=== PATIENT | male | born 1930 | race Caucasian/White ===

== ENCOUNTER 2019-01-05 11:00 | Outpatient (CLI) | payer MEDICARE ==
--- NOTE | 2019-01-05 13:41 | PET ---
Nuclear medicine FDG PET/CT: (Positron emission tomography and computed tomography) DATE: 01/05/2019 HISTORY: 88-year-old male with prostate cancer with recurrence at bladder wall. COMPARISON: 10/20/2018 TECHNIQUE: IV injection of F-18 fluorodeoxyglucose (FDG) dose: 11.8 mCi. PET scan and attenuation correction CT performed from skull base to proximal thighs. FINDINGS: SUV (standard uptake values) numbers given are maximum SUVs. QCLR used. There is a new finding of diffusely increased osseous uptake throughout the skeleton. No definite sclerotic osteoblastic lesions are visualized on the attenuation correction CT images. There is diffuse, moderate to severe mural thickening of the urinary bladder. FDG uptake in the bladd er wall cannot the evaluated because of the intense FDG activity within the bladder lumen. There are no FDG avid iliac chain lymph nodes, retroperitoneal lymph nodes, or any intra-abdominal or intrathoracic lymph nodes. No abnormal FDG uptake in the soft tissues of the neck, chest, or abdomen. Previously described findings on the attenuation correction CT are all again demonstrated and unchang ed. Please see that separate report. IMPRESSION: 1) new finding of diffusely increased FDG uptake throughout the skeleton. However, no definite osteob lastic lesions are visible on the attenuation correction CT. Has the patient received G-CSF? 2) diffuse mural thickening of the urinary bladder. This could represent neoplasm, radiation cystitis , or infectious cystitis. In general, we cannot evaluate degree of FDG uptake in the wall of the urinary bladder because of adjacent intense FDG activity in the lumen of the bladder. 3) no other areas of increased FDG uptake.
== END 2019-01-05 11:01 | disposition home or self-care (01) ==
LOC: PET 11:00
PROVIDERS: ATTEND Internal Medicine Hematology & Oncology
DX: C67.9 Malignant neoplasm of bladder, unspecified (principal); N32.89 Other specified disorders of bladder; R93.7 Abnormal findings on diagnostic imaging of other parts of musculoskeletal system
CPT/HCPCS: 78815; A9552

== ENCOUNTER 2020-01-20 13:08 | Outpatient (CLI) | payer MEDICARE ==
--- NOTE | 2020-01-20 14:12 | ULT ---
BILATERAL CAROTID DUPLEX ULTRASOUND: HISTORY: Atherosclerotic vascular disease TECHNIQUE: Grayscale, color-flow and spectral Doppler ultrasound imaging of the extracranial carotid artery syst ems was performed bilaterally. FINDINGS: There is plaque formation bilaterally. The peak systolic velocity in the right ICA measures 65 cm/s with an end-diastolic velocity of 14 cm/ s and a systolic ratio of 0.73. The peak systolic velocity in the left ICA measures 103 cm/s with an end-diastolic velocity of 23 cm/s and a systolic ratio of 1.12. Flow in both vertebral arteries remains antegrade. IMPRESSION: No evidence of hemodynamically significant stenosis
== END 2020-01-20 13:09 | disposition home or self-care (01) ==
LOC: SCSULT 13:08
PROVIDERS: ATTEND Internal Medicine
DX: I65.21 Occlusion and stenosis of right carotid artery (principal); I25.10 Atherosclerotic heart disease of native coronary artery without angina pectoris
CPT/HCPCS: 93880

== ENCOUNTER 2020-03-08 00:56 | Emergency (ER) | payer MEDICARE ==
[2020-03-08] MEDS ORDERED: Ketorolac Tromethamine 30 MG/ML VIAL ONE (02:16)
[2020-03-08] MEDS ORDERED: Ondansetron PF 4 MG/2 ML Vial ONE (02:16)
[2020-03-08] MEDS ORDERED: HYDROcodone/Acetaminophen 10/325 mg Tablet ONE (02:16)
== END 2020-03-08 03:18 | disposition home or self-care (01) ==
LOC: ERS 00:56
DX: C78.5 Secondary malignant neoplasm of large intestine and rectum (principal); C67.9 Malignant neoplasm of bladder, unspecified; E11.9 Type 2 diabetes mellitus without complications; I10 Essential (primary) hypertension; Z95.1 Presence of aortocoronary bypass graft; I25.10 Atherosclerotic heart disease of native coronary artery without angina pectoris; Z79.82 Long term (current) use of aspirin; Z79.899 Other long term (current) drug therapy
CPT/HCPCS: 96372; 99283; J1885; J2405

== ENCOUNTER 2020-03-10 09:27 | Inpatient (IN) | payer MEDICARE, OTHER ==
[2020-03-10 10:28] VITALS: BMI 24.0
[2020-03-10] MEDS ORDERED: Acetaminophen 325 MG TAB PO PRN (11:32)
[2020-03-10] MEDS ORDERED: Ondansetron PF 4 MG/2 ML Vial IVP PRN (11:32)
[2020-03-10] MEDS ORDERED: Acetaminophen 650 MG Suppository PR PRN (11:32)
[2020-03-10] MEDS ORDERED: Bisacodyl 10 MG SUPP PR PRN (11:32)
[2020-03-10] MEDS ORDERED: HumaLOG 300 UNITS/3 ML VIAL SC PRN (11:32)
[2020-03-10] MEDS ORDERED: Dextrose 5% in Water 1,000 ML IV PRN (11:32)
[2020-03-10] MEDS ORDERED: Dextrose 50% Abboject 50 ML SYRINGE SLOW IVP PRN (11:32)
[2020-03-10] MEDS ORDERED: Rocuronium Bromide 10 MG/ML (10ML VIAL) ONE (11:46)
[2020-03-10] MEDS ORDERED: Dexamethasone 20 MG/5 ML VIAL ONE (11:46)
[2020-03-10] MEDS ORDERED: EPHEDRINE 25 MG/5 ML SYRINGE ONE (11:46)
[2020-03-10] MEDS ORDERED: PHENYLEPHRINE-NS 100 MCG/ML 10 ML SYRINGE ONE (11:46)
[2020-03-10] MEDS ORDERED: Succinylcholine Chloride 20 MG/ML 10 ml SYRINGE FS ONE (11:46)
[2020-03-10] MEDS ORDERED: Lidocaine 1% PF 5 ML VIAL ONE (11:46)
[2020-03-10] MEDS ORDERED: PROPOFOL 200 MG/20 ML VIAL ONE (11:46)
[2020-03-10] MEDS ORDERED: Ondansetron PF 4 MG/2 ML Vial ONE (11:46)
[2020-03-10] MEDS: Morphine 4 MG/ML VIAL SLOW IVP PRN ×3 (12:17→23:24)
[2020-03-10] MEDS: Lactated Ringer's 1,000 ML IV SCH ×2 (12:22→20:11)
[2020-03-10 12:31] LABS: #Basophils 0.1 thou/uL (0.0-0.2); #Lymphocytes 1.2 thou/uL (1.20-3.40); #Monocytes 1.2 thou/uL (0.11-0.59); #Neutrophils 11.9 thou/uL (1.40-6.50); %Basophils 0.4 % (0.0-1.0); %Eosinophils 0.2 % (0.0-10.0); %Lymphocytes 8.3 % (21.0-51.0); %Neutrophils 83.1 % (42.0-75.0); Hemoglobin 13.2 g/dL (14.0-18.0); Mean Corpuscular HGB CONC 32.5 g/dL (32.0-36.0); Mean Corpuscular Hemoglobin 28.4 pg (27.0-31.0); Mean Corpuscular Volume 87.3 fL (78.0-98.0); Mean Platelet Volume 6.9 fL (7.4-10.4); Platelet Count 328 thou/uL (130-400); RBC Distribution Width 12.6 % (11.5-14.5); Red Blood Cell (RBC) Count 4.66 mill/uL (4.70-6.10); White Blood Cell (WBC) Count 14.3 thou/uL (4.8-10.8)
[2020-03-10] MEDS: fentaNYL 50 mcg/hour Patch TD SCH (12:33)
[2020-03-10 12:34] LABS: INR-International Normal Ratio 1.1; PTT 29.4 sec (22.9-36.1); Prothrombin Time 14.1 sec (12.0-14.7)
[2020-03-10 12:52] LABS: ALT (SGPT) 13 U/L (8-55); AST (SGOT) 27 U/L (5-34); Albumin 3.3 g/dL (3.4-4.8); Alkaline Phosphatase 80 U/L (40-110); Anion Gap 14 mmol/L (10-20); BUN (Urea Nitrogen) 17 mg/dL (8.4-25.7); Bilirubin, Total 0.4 mg/dL (0.2-1.2); Calc. Creatinine Clearance 65 mL/min (70-130); Calcium 8.8 mg/dL (7.8-10.44); Carbon Dioxide 22 mmol/L (23-31); Chloride 101 mmol/L (98-107); Estimated GFR-MDRD Greater than 90; Globulin 2.8 g/dL (2.4-3.5); Glucose 103 mg/dL (83-110); Potassium 4.1 mmol/L (3.5-5.1); Protein, Total 6.1 g/dL (5.8-8.1); Sodium 133 mmol/L (136-145)
--- NOTE | 2020-03-10 13:44 | RAD ---
PORTABLE SUPINE ABDOMEN: HISTORY: Question small bowel obstruction. FINDINGS: Evaluation of the bowel is limited on this single supine projection. Bowel survey with upright chest and 2-view abdomen including upright views are recommended if possible. There is stool seen in the left colon. There are gas-filled dilated loops of bowel in the mid and ri ght abdomen. This appears to represent transverse and right colon. I do not confirm small bowel dil atation or obstruction, although there is evidence of increased small bowel gas. IMPRESSION: 1. Evidence of colonic distention and stool in the left colon. Small bowel gas pattern appears nons pecific on this single supine projection. 2. There is amorphous calcification overlying the left mid abdomen which is seen within the mesenter y on recent CT is a benign dystrophic calcification. POS: AH
[2020-03-10] MEDS ORDERED: Fleet Enema 133 ML BOT PR SCH (14:45)
--- NOTE | 2020-03-10 14:45 | HP ---
REASON FOR ADMISSION: Possible bowel obstruction, severe dehydration. HISTORY OF PRESENTING ILLNESS: The patient gives history of having abdominal pain from last 3 weeks. This has been off and on. From last 5 days, he has had worsening of the same symptoms. The pain is more colicky in nature. He is constipated from last 5 days. He tried taking 30 mL of milk of magnesia x2 along with fleets enema four days back which did not really help. He had come to ER on the and has had a CT scan done which shows signs of possible small bowel obstruction. He has not had any relief with any of this. Finally, the patient went to see Dr. Sarmiento and was asked to come get hospitalized. He normally has 6 to 8 bowel movements a day after his urostomy surgery and in fact takes Imodium for it. Currently, he is constipated and likely obstipated as well. No complaints of fever. No complaints of cough or expectoration. His daughter is at bedside as well. PAST MEDICAL AND SURGICAL HISTORY: History of CABG for three-vessel disease and a stent placed 3 years back, history of bladder cancer and has had ileal conduit versus urostomy placed a year back by Dr. Sosa at [facility] in [place], history of prostate cancer from last 25 years, diabetes mellitus type 2. MEDICATIONS: Current medication; 1. Trulicity 0.75 mg once weekly. 2. Lisinopril 5 mg p.o. daily. 3. Lipitor 40 mg po. Daily. 4. Gabapentin 100 mg p.o. daily. 5. Aspirin 81 mg p.o. daily. 6. Lasix 40 mg p.o. daily. 7. K-Dur extended release 10 mEq p.o. daily. 8. Ferrous sulfate 325 mg p.o. daily. 9. Ultram p.r.n. for pain. ALLERGIES: SULFA. PERSONAL HISTORY: Does not abuse alcohol or drugs. No history of smoking. FAMILY HISTORY: Mother lived up to 90. She had history of CVA. Father of rupture of triple AAA that is abdominal aortic aneurysm at the age of 76 years. CODE STATUS: Do not attempt to resuscitate. Power of erisa attorney is his daughter , Ms. De La Torre. REVIEW OF SYSTEMS: CONSTITUTIONAL: Negative for weight loss or gain, ability to conduct usual activities. SKIN: Negative for rash, itching. EYES: Negative for double vision, pain. ENT/MOUTH: Negative for nose bleeding, neck stiffness, pain, tenderness. CARDIOVASCULAR: Negative for palpitations, dyspnea on exertion, orthopnea. RESPIRATORY: Negative for shortness of breath, wheezing, cough, hemoptysis, fever or night sweats. GASTROINTESTINAL: Negative for poor appetite, abdominal pain, heartburn, nausea , vomiting, constipation, or diarrhea. GENITOURINARY: Negative for urgency, frequency, dysuria, nocturia. MUSCULOSKELETAL: Negative for pain, swelling. NEUROLOGIC/PSYCHIATRIC: Negative for anxiety, depression. ALLERGY/IMMUNOLOGIC: Negative for skin rash, bleeding tendency. PHYSICAL EXAMINATION: GENERAL: The patient is 89-year-old male, who is currently in moderate to severe distress from abdominal off and on colic. VITAL SIGNS: Blood pressure 160/76, pulse 56 per minute, respiratory rate 16 per minute, temperature 98.2 degrees Fahrenheit, saturating 97% on room air. NECK: Supple. No elevated JVD. HEENT: Eyes; extraocular muscles intact. Pupils reacting to light. Oral cavity, mucous membranes are dry. No exudates or congestion. CARDIOVASCULAR: S1 and S2 heard, regular rhythm. RESPIRATORY: Air entry 1+ bilateral. Scattered rhonchi plus. No rales. ABDOMEN: Slightly distended. No rigidity or guarding. There is increased bowel sounds in the left upper and lower quadrant. There is tenderness in the suprapubic area. EXTREMITIES: No peripheral edema or calf tenderness. VASCULAR: Peripheral pulses 1+ bilateral. No ischemic ulcerations or gangrene. CENTRAL NERVOUS SYSTEM: No gross focal motor deficits noted. The patient is alert, awake, oriented well. PSYCHIATRIC: The patient's mood is euthymic. No hallucinations or delusions. LABORATORY DATA: White count of 14, hemoglobin and hematocrit of 13 and 40, platelet count 328, MCV is 87 with 83% neutrophils. PT/INR, PTT within normal limits. Sodium is 133, serum bicarb 22, BUN 17, creatinine 0.7, serum glucose 103. Liver enzymes within normal limits. Albumin is 3.3. KUB x-ray done shows colonic distention and stool in the left colon. Small bowel gas pattern is nonspecific. There is amorphous calcifications seen in the left mid abdomen, which appears to be a dystrophic calcification when compared to a recent CAT scan done on . I reviewed his CAT scan done on the , which shows no evidence of small bowel obstruction. There is a suggestion of tumor recurrence in the pelvis with bony destruction and involvement of sigmoid colon. There is a 6 x 5 x 4 cm mass in the right pubic region which erodes the bone. There is also a mass in the sigmoid colon which may connect to the previously described mass. Plan: The patient will be admitted to Oncology floor for possible bowel obstruction. He has almost had obstipation for the last 4 days now with severe abdominal colic. We will place him on fentanyl transdermal patch at 50 mcg. Keep him n.p.o. Morphine for breakthrough pain. He will be on Ringer lactate 100 mL per hour. I will consult Dr. Samuel Smalls for Gastroenterology. I have spoken to Dr. Sarmiento and I have taken all the updates and likely Dr. Shea will initiate radiation for the mass in the pubic area. The patient has two different cancers with prostate cancer and bladder cancer. We will try to give him multiple fleets enema and see if this will decompress his abdomen. A KUB x-ray is not very confirmatory for small bowel obstruction. We will obtain a CT of the abdomen and pelvis with and without contrast. If needed, he will have NG tube placed as well. His overall prognosis is guarded. The patient wants to be a do not attempt to resuscitate as well. Job ID: [id number] [facility]
--- NOTE | 2020-03-10 15:17 | CT ---
CT OF THE ABDOMEN AND PELVIS WITH IV CONTRAST INDICATION: Small bowel obstruction COMPARISON: CT abdomen pelvis dated March 07, 2020 FINDINGS: ABDOMEN: Lung bases: Clear Liver: No focal lesion. Gallbladder: Normal appearing. Pancreas: Normal. Adrenal glands: Normal. Spleen: Normal. Kidneys and ureters: Normal. No hydronephrosis. Vasculature: There are moderate vascular calcifications seen involving the visualized vasculature. Lymph nodes:No lymphadenopathy. Free fluid in abdomen:There is mild free fluid within the lower abdomen. PELVIS: Small and large bowel: There is a 4 x 3.6 cm soft tissue mass involving the lower sigmoid colon affix ing the sigmoid colon to the left anterolateral pelvic wall. There is worsening low colonic obstruction at this level. There is a 5 x 4.2 cm soft tissue mass arising from the right pubic body a nd extending into the anterior aspect of the right pelvis. Appendix:Not seen Bladder: Surgically absent. There is a right lower quadrant urostomy extending to the right upper corrine drant of the abdomen. Rectal and perirectal soft tissues:Mild amount retained stool the rectum Reproductive structures: Surgically absent Free fluid in pelvis: Moderate free fluid Lymphadenopathy pelvis: No lymphadenopathy is evident. Osseous structures: There is an osteolytic lesion involving the right pubic body. There is diffuse os teopenia. There is scattered degenerative and osteoarthritic changes. Soft tissues:Normal. IMPRESSION: 1. Soft tissue mass in the left lower quadrant of the abdomen and pelvis affixing the lower sigmoid c olon to the left anterolateral pelvic wall and inducing worsening moderate to high-grade low colonic obstruction. 2. Prominent soft tissue mass either arising or invading the right pubic body and projecting into the anterior right pelvis. 3. Findings of a total cystectomy and establishment of a right lower quadrant urostomy.
[2020-03-10] MEDS ORDERED: Fleet Enema 133 ML BOT PR PRN (16:38)
[2020-03-10] MEDS ORDERED: Fentanyl 100 MCG/2 ML VIAL ONE ×4 (18:42→22:37)
[2020-03-10] MEDS ORDERED: cefOXitin 2 GM in Sodium Chloride 0.9% 100 ML IVPB SCH (18:45)
[2020-03-10] MEDS ORDERED: Bupivacaine 0.25% HCL 30 ML VIAL ONE (18:48)
[2020-03-10] MEDS ORDERED: Lidocaine 1% w/Epinephrine 1:100K 20 ML VIAL ONE (18:48)
[2020-03-10] MEDS ORDERED: cefOXitin Sodium/Dextrose 2 GM/50 ML BAG ONE (18:49)
[2020-03-10] MEDS: Famotidine/PF 20 mg/2ml Vial SLOW IVP SCH (20:11)
[2020-03-10] MEDS ORDERED: SUGAMMADEX SODIUM 200 MG/2 ML VIAL ONE (21:16)
[2020-03-10] MEDS ORDERED: Promethazine HCl 25 MG/ML VIAL SLOW IVP PRN (21:29)
[2020-03-10] MEDS ORDERED: Ondansetron HCl/PF 4 MG/2 ML Vial IVP PRN (21:29)
[2020-03-10] MEDS ORDERED: Promethazine HCl 25 MG/ML VIAL IM PRN (21:29)
--- NOTE | 2020-03-10 23:07 | CON ---
DATE OF CONSULTATION: 03/10/2020 REASON FOR CONSULTATION: Mr. Linton is an 89-year-old gentleman with concerns for recurrent bladder cancer. I was asked to see him to discuss his options with radiation therapy. HISTORY OF PRESENT ILLNESS: Mr. Linton is known to me. 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 He has a previous history of prostate cancer that was treated with prostatectomy and then after he developed a PSA recurrence, underwent radiation therapy. This was done in 2002 at [facility]. I do not have the details of those radiation records. Apparently, his PSA has been undetectable since then. After diagnosis of his bladder cancer, he ultimately did undergo surgery at [facility] about a year ago. Prior to his surgery, he did have a colonoscopy, which showed no evidence of rectal involvement of his bladder cancer, but did show some telangiectasias of the anterior wall consistent with radiation effect. He then apparently was lost to follow up after his surgery until about 3 days ago when he was seen in the emergency room. For about the past 2 or 3 weeks, he had been having some pain in his lower abdomen. Prior to that, he was feeling well. Then, for about the past 1 to 2 weeks, he has had more problems with his bowel movements. After his surgery, he was having 6 to 8 somewhat explosive bowel movements every day. For that, he was taking Imodium A-D. About a week ago, he took some Imodium and basically since then has not had a bowel movement. His abdominal pain has slowly been increasing. The pain has moved more from the lower abdomen/suprapubic region up into the upper abdomen. Three days ago, he was seen in the emergency room and he underwent a CT scan of the abdomen and pelvis. This showed to be possibly two adjacent masses to each other versus one mass that was connected. The largest mass was in the pubic region measuring 6 cm and was eroding the pubic bone. The second mass was abutting the sigmoid colon. There was no dilated bowel loops. We saw Dr. Sarmiento today. He was having increased pain as well as nausea and he was admitted to the hospital for further workup and evaluation. He then had a repeat CT scan, which showed some dilatation now of the large bowel proximal to the mass that was possibly involving the sigmoid colon. I am now seeing him to discuss his options with radiation therapy. Presently, he has not had blood in his bowel movements for the past year. He is on aspirin. He is feeling more bloated. He denies any other areas of pain. He has been having nausea, but no vomiting. He has reported some more shortness of breath since these abdominal symptoms have began. Again prior to three weeks ago, he was feeling well and being very active with no symptoms. He denies any recent weight loss. He has no weakness in his arms or legs. He has no headaches. He voices no other complaints. PAST MEDICAL HISTORY: 1. Prostate cancer as mentioned above. 2. Bladder cancer as mentioned above. 3. Diabetes. 4. Coronary artery disease, status post CABG x3 vessels in 2015. 5. Osteoarthritis. 6. Status post hemorrhoidectomy. 7. Status post nasal polypectomy. 8. Status post appendectomy. 9. Status post bilateral cataract surgery. 10. Hypercholesterolemia. MEDICATIONS: 1. Atorvastatin. 2. Tramadol. 3. Zofran. 4. Hydrocodone. 5. Trulicity. 6. Lasix. 7. Neurontin. 8. Lisinopril. 9. B12. ALLERGIES: SULFA DRUGS CAUSE RASH AND SWELLING. SOCIAL HISTORY: He has no cigarette or alcohol use. He lives in [place], [place]. He is a for the past year. He does have a daughter, who lives here in town. FAMILY HISTORY: Maternal grandmother had cancer, the type of which is unknown to him. His mother at age 92 from stroke and diabetes. Father at age 78 from aneurysm. There is no other family history of malignancies. REVIEW OF SYSTEMS: A 12-point review of systems is otherwise negative. PHYSICAL EXAMINATION: VITAL SIGNS: Height 5 feet 8 inches, weight 158 pounds, blood pressure 177/82, pulse is 62, respirations 16, temperature is 98.1, O2 saturation is 95%. CONSTITUTIONAL: He is alert and oriented and in mild to moderate discomfort. Karnofsky performance status is 70% at the present. Several weeks ago, it sounds that his Karnofsky performance status was 90%. EYES: Pupils equal, round, and reactive to light. Extraocular movements are intact. ENT: Oral cavity and oropharynx are normal without lesion or erythema. Palate elevates symmetrically. Gingiva is intact. NECK: Supple without cervical or supraclavicular adenopathy. No thyromegaly. Larynx midline. LUNGS: Breathing nonlabored. Clear to auscultation and percussion. CARDIOVASCULAR: Heart, regular rate and rhythm without murmur. No lower extremity edema. BACK: No tenderness on fist percussion of the spine. LYMPHATIC: No axillary or inguinal adenopathy. ABDOMEN: Bowel sounds absent. Distended and diffusely tender with no rebound or guarding. His urinary diversion is present in the right lower quadrant area. SKIN: Without rash or purpura. NEUROLOGIC: Cranial nerves 2 through 12 are grossly intact. Motor strength is 5/5 in both upper and lower extremities in all muscle groups tested. Reflexes and gait were not tested. LABORATORY DATA: White blood cell count was 14,300 with a hemoglobin of 13.2, hematocrit of 40.7, and platelet count of 328,000. Chemistry group showed sodium of 133 and an albumin of 3.1. Electrolytes and creatinine were otherwise normal. RADIOLOGIC DATA: CT scan of the abdomen and pelvis from 03/07/2020 and from a little while ago from 03/10/2020 were both personally reviewed. Again, he has two masses in the suprapubic region. One is adjacent to and possibly involving the sigmoid colon. The other mass is just inferior to this and is eroding into the pubic bone. It extends down to the anterior wall of the rectum, but does not seem to involve the rectal wall. There is now dilated large bowel proximal to this that was not dilated 3 days ago. ASSESSMENT: Mr. Linton is an 89-year-old gentleman who likely has recurrent bladder cancer in the suprapubic region. This is possibly causing a large bowel obstruction. PLAN: I did have a discussion with Mr. Linton regarding his CT scans and his present diagnosis. I did explain to him that he likely has a recurrence of his bladder cancer. The first priority is his possible bowel obstruction. I did discuss the case with Dr. Smalls, who has also been consulted to see him and is going to see him shortly. I explained to Dr. Smalls the present situation. Dr. Smalls is going to evaluate him and see if he is impacted or whether he is clinically obstructed and needs a surgery consult. I explained to Mr. Linton that we need to find out the reason for his bowel difficulties prior to making any decisions regarding his cancer. Once his bowel issues have been resolved, we can then decide how best to treat his recurrent cancer. Again up to 3 weeks ago, he was asymptomatic from this. I do think his pain presently is more from his potential bowel obstruction than from the suprapubic mass, although once the bowel obstruction is resolved, then it is possible that we may have more of an indication as to whether he is having pain from the erosion of the pubic bone. The difficulty with a repeat course of radiation is the fact that he has had radiation to the pelvis before and that on colonoscopy he has telangiectasias in the anterior wall of the rectum from his previous radiation. While his radiation was some years ago and has been healing, that is difficult to predict how much healing has occurred. A repeat course of radiation would involve some risk. In particular, he may have up to a 20% chance with a repeat course of radiation of having serious and significant damage to the rectum, which could either lead to colostomy formation, or could lead to intractable bleeding. I have not discussed this with Dr. Sarmiento as to whether there are systemic options that may be available. He likely does not have curable disease from his recurrent bladder cancer, but may be able to undergo treatment for palliation. Again, we will evaluate him once his bowel obstruction issues have been resolved and see how he is doing and make a decision on how best to proceed with treatment of his bladder cancer. This was discussed with Mr. Linton and time was taken to answer all of his questions. Thank you for asking me to see this interesting consultation. Job ID: [id number]
[2020-03-10] MEDS ORDERED: traMADol HCl 50 MG TAB PO PRN ×2 (23:22)
--- NOTE | 2020-03-11 02:07 | CON ---
DATE OF CONSULTATION: 03/10/2020 CHIEF COMPLAINT: Abdominal pain and inability to pass bowel movement or air from the rectum. HISTORY OF PRESENT ILLNESS: Mr. Linton is an 89-year-old man with a past history of prostate cancer treated with radiation and more recent history of bladder cancer for which he underwent bladder resection. Since then, he has had some problems with constipation intermittently with diarrhea. He has taken Imodium intermittently for the episodes of diarrhea. Over the last three weeks, he has had more severe constipation. He has only passed small stools within a month. A few days ago, he took milk of magnesia with no output. He feels like he has passed no air from the rectum for days. He came to the emergency room and had CT scan performed which showed marked dilation of the colon all the way up to the sigmoid where there appears to be external compression from a mass in the pelvis. He had been to the ER three days before and CT scan at that time showed less distention than what this repeat CT today. He has felt nauseated, but he has not been vomiting. He states he has only had one good meal over the last week. Otherwise, he has just been taking some liquids. No fever. No blood in the stool. States he had a colonoscopy a year ago by Dr. Awan, which was negative. PAST MEDICAL HISTORY: Coronary artery disease, hypertension, prostate cancer, more recent bladder cancer. PAST SURGICAL HISTORY: Coronary artery bypass graft, bladder resection and ileal conduit/urostomy, appendectomy. FAMILY HISTORY: Negative for GI malignancy. SOCIAL HISTORY: No alcohol, tobacco, or drugs. ALLERGIES: SULFA. MEDICATIONS: Prior to admission, 1. Trulicity. 2. Lisinopril. 3. Lipitor. 4. Gabapentin. 5. Aspirin. 6. Furosemide. 7. Potassium. 8. Iron. 9. Ultram p.r.n. REVIEW OF SYSTEMS: Negative x10 systems reviewed except as stated in history of present illness. PHYSICAL EXAMINATION: VITAL SIGNS: Temperature 98.1, pulse 62, blood pressure 177/82. GENERAL: He is in no acute distress. Alert and oriented x3. HEENT: Eyes have no scleral icterus. Oropharynx is clear without lesions. No cervical or supraclavicular lymphadenopathy. LUNGS: Clear to auscultation bilaterally. HEART: Regular rate and rhythm without murmur. ABDOMEN: Distended, tender diffusely, is tympanic to percussion. Bowel sounds are hypoactive. EXTREMITIES: No lower extremity edema. RECTAL: Exam reveals no stool in the rectal vault. It is not dilated or distended. He just had an enema given by the nursing staff a while before and did pass some stools out with that. LABORATORY DATA: White blood cell count 14.3, hemoglobin 13.2, platelets 328. INR 1.1. Creatinine 0.78, bilirubin 0.4, AST 27, ALT 13, alkaline phosphatase 80, albumin 3.3, INR 1.1. IMAGING: CT scan of the abdomen and pelvis shows marked dilation of the colon proximal to the sigmoid where there is a soft tissue mass impinging, appears more externally to the sigmoid, but causing obstruction in this area. IMPRESSION: 1. Colonic obstruction at the level of sigmoid apparently from external compression from the mass, which could be recurrent bladder cancer. 2. Constipation and abdominal pain. Rectal exam reveals no impaction and still unable to pass any air even with digital exam. 3. History of bladder cancer, status post bladder resection, now with recurrent masses in the pelvis by CT. 4. History of prostate cancer treated with radiation in the past. RECOMMENDATIONS: His case was discussed with Dr. Carrasquillo and Dr. Shea. He has worsening pain and colonic distention with colonic obstruction. He has not responded adequately to laxatives and his rectum is decompressed. He has had significant prior surgery in the pelvis as well as radiation. At this point, plan is to proceed with diverting colostomy. Job ID: [id number] [facility]
--- NOTE | 2020-03-11 02:40 | CON ---
DATE OF CONSULTATION: REASON FOR CONSULTATION: Obstructing sigmoid colon mass. HISTORY OF PRESENT ILLNESS: Mr. Linton is an 89-year-old man with a complex past surgical history. He underwent a prostatectomy in the , then had a recurrence and underwent radiation therapy in the early 1999. He then developed bladder cancer and underwent a radical cystectomy with urostomy last year in [place]. After his cystectomy, he states that he had problems with explosive diarrhea and gas 5 or 6 times a day to the point that his doctor told him to use Imodium if he had to leave the house to go to an appointment. He has been doing this fairly regularly, but about three weeks ago he developed abdominal pain, which was colicky and stopped having frequent diarrhea and instead started having constipation. This became progressively worse and he states that for the past 5 days or so, he has not been able to have any bowel movement. He called the advice line that his insurance company provide and spoke with the physician, who recommended milk of magnesia and Fleet enema. The milk of magnesia has had no results and he was only able to pass a small amount of stool with the enema. He has had another enema here in the hospital and passing stool, but has not passed any gas. He states that it has been almost a week since he has last passed gas and that the only stool that he has passed has been with the enema. He has had nausea and anorexia and has not really had any solid food for 5 days, but has been subsisting on broth. He came to the ER on the and was given pain medication, but continued to have worsening pain, so he came to Dr. Sarmiento's office today and was sent to the hospital for admission. He has not had any fevers or chills and has been otherwise well except for his abdominal problems. PAST MEDICAL HISTORY: Coronary artery disease, status post CABG and stent. He is seen by Dr. Willie Mitchell for this and was told before his bladder surgery last year that his heart was fine. He recently saw Dr. Mitchell in earlier this month and was again told his heart is doing well. He also has a history of prostate cancer and bladder cancer. He had a colonoscopy one year ago by Dr. Awan, which showed some telangiectasia from radiation in the rectum, but no other problems in the colon itself. He has a history of diabetes and hyperlipidemia. OUTPATIENT MEDICATIONS: Include: 1. Trulicity. 2. Lisinopril. 3. Lipitor. 4. Gabapentin. 5. Aspirin. 6. Lasix. 7. K-Dur. 8. Iron. 9. Ultram. ALLERGIES: HE HAD AN ALLERGIC REACTION TO SULFA IN THE 1970S. SOCIAL HISTORY: He does not smoke, drink, or use illicit drugs. FAMILY HISTORY: Stroke and aortic aneurysm. REVIEW OF SYSTEMS: Ten system review of systems is negative except per HPI. He specifically denies any respiratory complaints and his weight has been fairly stable. PHYSICAL EXAMINATION: VITAL SIGNS: He is afebrile. Heart rate 62, respirations 16, 95% saturated on room air, and blood pressure 177/82. GENERAL: Reveals a healthy-appearing elderly gentleman, who appears younger than his stated age. He is not flushed or toxic in appearance. He is not jaundiced or icteric. He is in no acute distress. HEENT: Unremarkable. NECK: Supple without lymphadenopathy or thyroid nodules. Pupils are equal and reactive. Extraocular movements and facial movements are intact and symmetric. HEART: Regular in its rate and rhythm without murmurs, rubs, or gallops. LUNGS: Clear to auscultation bilaterally with good air entry. ABDOMEN: Very distended and tympanitic. He has a urostomy in the right abdomen with clear urine output. He has a healed lower midline incision. No palpable masses or hernias, but diffusely tender to palpation and very distended. EXTREMITIES: Warm and well perfused without edema. NEUROLOGIC: No focal deficit. PSYCHIATRIC: Alert, oriented, appropriate and an excellent historian with a normal affect. LABORATORY DATA: White count is mildly elevated at 14, hematocrit 40.7, platelets 328. Coags normal. Sodium slightly low at 133, but other electrolytes unremarkable. Albumin slightly low at 3.3. IMAGING DATA: CT images are reviewed and I agree with the written report. The patient has marked colonic distention, which has worsened even in the three days since his CT on 03/07. He has a small amount of retained stool down to the level of the sigmoid colon, where there is an abrupt cut off with a soft tissue mass. The soft tissue mass appears to be bilobed and one portion extends into and erodes the pubic bone and the other half involves the sigmoid colon. There is a small amount of stool in the distal rectum. The upper rectum is decompressed. The small bowel decompressed in the stomach is not enlarged. ASSESSMENT: Colon obstruction from pelvic mass likely representing recurrent bladder cancer. This is not resectable as it is invading the pubic bone. At this point, he has life-threatening colon obstruction and I have recommended emergent colostomy for diversion. He will need to have a loop colostomy since he has what appears to be a complete obstruction at the level of the sigmoid colon. He had a radical cystectomy a year ago and likely has a fair amount of scarring in the pelvis, but I do not think that I will be able to biopsy the mass, but this should be percutaneously accessible if a tissue diagnosis is needed. However, clinically it is most likely to be recurrent bladder cancer, especially given the normal colonoscopy one year ago. I think it is extremely unlikely to be a primary colon cancer and he has no evidence of recurrence of his prostate cancer and his PSA is extremely low by report from his oncologist. Treatment of the pelvic mass itself is somewhat problematic, but immunotherapy or chemotherapy are optioned, a repeat radiation could be considered, but he does already have radiation damage to his rectum and could have problems with bleeding or other complications of radiation. However, as I explained to him and to his daughter that is not the immediate life-threatening issue and we are going to proceed with colostomy to give him relief of his pain and allow him to eat and recover following which treatment options for his underlying process can be considered. This is planned to be a permanent colostomy since any treatment of his pelvic masses likely be palliative rather than curative. The procedure and its inherent risks were discussed with the patient. These risks include, but are not limited to, bleeding, infection, risks of anesthesia, damage to the intestine or other nearby structures, and need for other surgery. He understands the situation and wants to proceed with treatment. He has been posted emergently for the operating room, and antibiotics have been ordered on-call to OR. Job ID: [id number]
[2020-03-11 05:32] LABS: #Lymphocytes 0.7 thou/uL (1.20-3.40); #Monocytes 1.1 thou/uL (0.11-0.59); %Basophils 0.1 % (0.0-1.0); %Eosinophils 0.1 % (0.0-10.0); %Lymphocytes 4.6 % (21.0-51.0); %Monocytes 6.9 % (0.0-10.0); %Neutrophils 88.2 % (42.0-75.0); Hemoglobin 12.2 g/dL (14.0-18.0); Mean Corpuscular HGB CONC 31.2 g/dL (32.0-36.0); Mean Corpuscular Hemoglobin 27.3 pg (27.0-31.0); Mean Corpuscular Volume 87.3 fL (78.0-98.0); Platelet Count 312 thou/uL (130-400); RBC Distribution Width 12.7 % (11.5-14.5); Red Blood Cell (RBC) Count 4.48 mill/uL (4.70-6.10); White Blood Cell (WBC) Count 15.9 thou/uL (4.8-10.8)
[2020-03-11 05:37] LABS: Anion Gap 14 mmol/L (10-20); BUN (Urea Nitrogen) 15 mg/dL (8.4-25.7); Calc. Creatinine Clearance 72 mL/min (70-130); Calcium 8.3 mg/dL (7.8-10.44); Carbon Dioxide 24 mmol/L (23-31); Chloride 102 mmol/L (98-107); Estimated GFR-MDRD Greater than 90; Glucose 131 mg/dL (83-110); Potassium 4.8 mmol/L (3.5-5.1); Sodium 135 mmol/L (136-145)
[2020-03-11] MEDS: Lactated Ringer's 1,000 ML IV SCH ×2 (05:45→17:23)
[2020-03-11] MEDS: Enoxaparin Sodium 40 MG/0.4 ML SYRINGE SC SCH (09:35)
[2020-03-11] MEDS: Famotidine/PF 20 mg/2ml Vial SLOW IVP SCH ×2 (09:35→21:43)
--- NOTE | 2020-03-11 10:51 | PDOC.HOSPP ---
- Subjective Encounter Date: 03/11/20 Encounter Time: 10:00 Subjective: abd pain is better had lot of stool output from colostomy overnight no nausea says his belly is gurgling and he is passing a lot of gas - Objective Vital Signs & Weight: Vital Signs (12 hours) Temp Pulse Resp BP Pulse Ox 03/11/20 07:00 97.6 F 73 18 139/67 98 03/11/20 03:00 97.9 F 72 18 131/71 97 03/10/20 23:06 98.6 F 78 16 180/82 H 97 Weight Admit Weight 158 lb 8 oz Weight 158 lb 8 oz I&O: 03/10/20 03/11/20 03/12/20 06:59 06:59 06:59 Intake Total 1260 Output Total 1875 Balance -615 Result Diagrams: 03/11/20 04:37 03/11/20 04:37 Additional Labs: Accuchecks 03/11/20 03/11/20 03/10/20 04:41 00:11 17:36 POC Glucose 134 H 137 H 88 03/10/20 12:07 POC Glucose 102 Hospitalist ROS - Medication Medications: Active Medications Generic Name Dose Route Start Last Admin Trade Name Freq PRN Reason Stop Dose Admin Enoxaparin Sodium 40 mg 03/11/20 09:00 03/11/20 09:35 Lovenox SC 40 mg 0900 PARUL Administration Famotidine 20 mg 03/10/20 21:00 03/11/20 09:35 Pepcid SLOW IVP 20 mg Q12HR PARUL Administration Fentanyl 50 mcg 03/10/20 11:45 03/10/20 12:33 Duragesic TD 50 mcg Q3D PARUL Administration Lactated Ringer's 1,000 mls @ 100 mls/hr 03/10/20 11:45 03/11/20 05:45 Lactated Ringer's IV 1,000 mls .Q10H PARUL Administration Morphine Sulfate 4 mg 03/10/20 11:35 03/10/20 23:24 Morphine SLOW IVP 4 mg Q4H PRN Administration Breakthrough Pain Tramadol HCl 50 mg 03/10/20 23:22 03/11/20 05:44 Ultram PO 50 mg Q4H PRN Administration Moderate Pain (4-6) - Exam General Appearance: awake alert Eye: PERRL, anicteric sclera ENT: no oropharyngeal lesions, dry oral mucosa Neck: supple, no JVD Heart: RRR, no murmur Respiratory: no wheezes, no rales Gastrointestinal: soft, normal bowel sounds Gastrointestinal - other findings: colostomy and urostomy+ Extremities: no cyanosis, no edema Neurological: cranial nerve grossly intact, no focal deficits Psychiatric: normal affect, A&O x 3 Hosp A/P (1) Colon obstruction Code(s): K56.609 - UNSP INTESTNL OBST, UNSP TO PARTIAL VERSUS COMPLETE OBST Status: Acute (2) Bladder cancer Status: Chronic Qualifiers: Bladder location: unspecified site Qualified Code(s): C67.9 - Malignant neoplasm of bladder, unspecified (3) Prostate cancer Code(s): C61 - MALIGNANT NEOPLASM OF PROSTATE Status: Chronic (4) HTN (hypertension) Code(s): I10 - ESSENTIAL (PRIMARY) HYPERTENSION Status: Chronic Qualifiers: Hypertension type: essential hypertension Qualified Code(s): I10 - Essential (primary) hypertension (5) DM type 2 (diabetes mellitus, type 2) Status: Chronic Qualifiers: Diabetes mellitus retirement insulin use: without oysterman use (6) Dyslipidemia Code(s): E78.5 - HYPERLIPIDEMIA, UNSPECIFIED Status: Chronic - Plan s/p diverting colostomy 03/10, has had lots of relief and movement of pent up stool overnight continue fentanyl tts, morphine prn, LR @100mls/hr x 1 more day to mobilize as tolerated hemostable overall prognosis is guarded
--- NOTE | 2020-03-11 13:18 | PDOC.GSPN ---
Surgery Progress Note: Subj - Subjective Narrative: Patient feels much better this morning. The nurses say they have had some problems with the colostomy appliance leaking but wound care has gotten involved and it seems to be holding now. He has had a lot of liquid stool from his colostomy. His abdomen is soft and nondistended and he has only some minor postoperative tenderness near the colostomy site. He is tolerating his liquid diet and from my standpoint his diet can be advanced as tolerated. I will see him back in my clinic in a couple weeks and remove the red rubber bridge which should help in terms of getting a good seal around the colostomy. Surgery Progress Note: Obj - Vital signs Vital signs: Vital Signs - Most Recent Temp Pulse Resp BP Pulse Ox 97.6 F 64 18 129/71 95 03/11/20 12:29 03/11/20 12:29 03/11/20 12:29 03/11/20 12:29 03/11/20 12:29 Surgery Progress Note: Results - Labs Result Diagrams: 03/11/20 04:37 03/11/20 04:37 Lab results: Laboratory Results - last 24 hr 03/11/20 03/11/20 03/11/20 04:37 04:37 04:41 WBC 15.9 H RBC 4.48 L Hgb 12.2 L Hct 39.1 L MCV 87.3 MCH 27.3 MCHC 31.2 L RDW 12.7 Plt Count 312 MPV 7.0 L Neutrophils % 88.2 H Lymphocytes % 4.6 L Monocytes % 6.9 Eosinophils % 0.1 Basophils % 0.1 Neutrophils # 14.0 H Lymphocytes # 0.7 L Monocytes # 1.1 H Eosinophils # 0.0 Basophils # 0.0 Sodium 135 L Potassium 4.8 Chloride 102 Carbon Dioxide 24 Anion Gap 14 BUN 15 Creatinine 0.71 Estimated GFR (MDRD) Greater than 90 Glucose 131 H POC Glucose 134 H Calcium 8.3
--- NOTE | 2020-03-11 13:44 | PRG ---
DATE OF SERVICE: 03/11/2020 SUBJECTIVE: Mr. Linton underwent diverting colostomy last night. His colon is decompressed. He is having good stool output since then, and he is much more comfortable and very happy with the results. OBJECTIVE: VITAL SIGNS: Temperature 97.6, pulse 64, blood pressure 129/71. LUNGS: Clear to auscultation bilaterally. HEART: Regular rate and rhythm without murmur. ABDOMEN: Soft, tender around the surgical site, but nontender elsewhere. Bowel sounds are present. EXTREMITIES: No lower extremity edema. LABORATORY DATA: White blood cell count 15.9, hemoglobin 12.2, platelets 312. INR 1.1. Creatinine 0.71. IMPRESSION: Sigmoid colon obstruction secondary to external compression from metastatic lesion, likely bladder cancer in origin. Status post diverting colostomy last night. RECOMMENDATIONS: 1. He will follow up with Oncology and Radiation Oncology to consider treatment options for the pelvic mass that is causing the obstruction. 2. He did have a colonoscopy a year ago by Dr. Awan which was reportedly clear. 3. I will sign off for now. Please call if GI can be of assistance. Job ID: [id number]
[2020-03-11 16:00] LABS: SARS-CoV-2 MS2 Positive; SARS-CoV-2 N Gene Negative; SARS-CoV-2 S Gene Negative; SARS-CoV-2 by NAA Not Detected (NotDetected); SARS-CoV-2 orf1ab Negative
--- NOTE | 2020-03-11 17:08 | CON ---
DATE OF CONSULTATION: 03/11/2020 HISTORY OF PRESENT ILLNESS: Mr. 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 He had been lost to followup from my office for some time, but presented back on the day of admission with complaints of increasing pain. He had been in the ER three days prior to the admission with a CT scan showing a new suprapubic mass which was pressing on the sigmoid colon. On the day that I saw him in the office, which was the day of admission, he had increasing complaints of abdominal distention as well as no output from his rectum for about 72 hours. He even stated that he had not passed any gas and he not had a bowel movement. I admitted him to the hospital. This was for pain control as well as a possible bowel obstruction. In the last 24 hours, he was evaluated by Gastroenterology as well as Radiation Oncology and eventually surgical consult. It was decided that he needed a diverting colostomy for palliation because of the bowel obstruction and he had this surgery approximately 12 hours ago. He now is feeling much better and states his pain is very well controlled. He had a large amount of stool in the colon which was suctioned out and he is feeling that his belly is much less distended. He has some tenderness to touch around the ostomy site, but otherwise is feeling much improved. He denies nausea or vomiting. PAST MEDICAL HISTORY: 1. Stage III bladder cancer, likely relapsed in the suprapubic area as of February of 2020. 2. Arthritis. CURRENT MEDICATIONS: 1. Tylenol p.r.n. 2. Bisacodyl p.r.n. 3. 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 4. Lovenox 40 mg subcu daily. 5. Pepcid 20 mg IV q.12 hours. 6. Fentanyl 50 mcg transdermal q.3 days. 7. Glucagon p.r.n. 8. Insulin lispro sliding scale. 9. Lactated Ringer's infusion. 10. Morphine 4 mg IV q.4 hours p.r.n. 11. Zofran 4 mg IV q.6 hours p.r.n. 12. Tramadol 50 to 100 mg q.4 to 6 hours p.r.n. ALLERGIES: SULFA. SOCIAL HISTORY: He is a quite functional 89-year-old. Denies any significant tobacco or alcohol use, he is a , his about a year and a half ago and his daughters with him most of the time. She is very supportive. He lives locally. FAMILY HISTORY: Noncontributory. REVIEW OF SYSTEMS: Otherwise, 10-point review of systems is negative. Please see the history of present illness. PHYSICAL EXAMINATION: VITAL SIGNS: Temperature 97.6, pulse 73, respirations 16 to 18, O2 saturation 98% on 1.5 L nasal cannula, blood pressure 139/67. GENERAL: He is alert, awake, and oriented x3. He is walking around, ambulating in the room, in no acute distress. HEENT: Extraocular muscles are intact. Sclerae are anicteric. NECK: Supple without lymphadenopathy. CARDIOVASCULAR: Regular rhythm. LUNGS: Clear to auscultation bilaterally. ABDOMEN: Hypoactive bowel sounds. Softer. There is some tenderness over the ostomy site, he notably has a colostomy as well as a right lower quadrant ileal conduit with urine in it. EXTREMITIES: No edema. No clubbing. LABORATORY DATA: White blood cell count 15.9, hemoglobin 12.2, platelets 312. Sodium 135, potassium 4.8, chloride 102, CO2 of 24, BUN 15, creatinine 0.7, glucose 131, calcium 8.3. Liver function tests were normal on admission. PT and PTT also normal. CT scan of the abdomen and pelvis done on this admission and compared to three days prior showed the soft tissue mass in the left lower quadrant of the abdomen and pelvis, affixing the lower sigmoid colon to the left anterolateral pelvic wall with worsening moderate to high-grade colonic obstruction. This was much worse since three days ago. Prominent soft tissue mass was either rising or invading the right suprapubic body and projecting into the anterior right pelvis. ASSESSMENT: Mr. Linton is an 89-year-old male with; 1. History of transitional carcinoma of the bladder, now with relapse in the suprapubic space. 2. Colonic obstruction secondary to suprapubic mass, now status post colostomy for palliation. 3. Pain secondary to above. 4. Constipation, improving secondary to the above. PLAN: 1. We again discussed the diagnosis and the fact that this is likely relapse of bladder cancer. Appreciate the help of surgery and he is already recovering well from the colostomy. 2. As he continues to improve, we will discuss further treatment options including possibly radiation, I will discuss the case with Dr. Shea. 3. If he is not a radiation candidate, another reasonable option might be to consider immunotherapy. 4. We did discuss hospice and a possible do not resuscitate. He is a DNR. If there are no reasonable treatment options, I think he would like to move forward with hospice, but he may be a candidate for immunotherapy. We will discuss this as he recovers from the colostomy . Job ID: [id number]
--- NOTE | 2020-03-11 17:58 | PDOC.OP ---
Operative Note - Operative Note Operative Note: PROCEDURE: Diverting loop colostomy SURGEON: Christiano Carrasquillo M.D. SILL WORKER: Bennie Blake MS 3 DATE: 03/10/2020 PREOPERATIVE DIAGNOSIS: Sigmoid obstruction due to recurrent bladder cancer POSTOPERATIVE DIAGNOSIS: Sigmoid obstruction due to recurrent bladder cancer HISTORY: Patient is 1 year status post radical cystectomy and urostomy and presented with a 3-week history of worsening constipation and 1 week history of obstipation and inability to pass gas or stool, subsisting only on sips of broth. CT revealed a large pelvic tumor involving the sigmoid colon and extending into the pubic symphysis with severe obstruction of the proximal colon. Small bowel and stomach were not significantly distended. Recommendation was made to proceed with emergent diverting loop colostomy as this mass is not resectable. FINDINGS: Tensely distended but viable and nonedematous colon filled with gas and liquid stool. PROCEDURE IN DETAIL: After informed consent was obtained and appropriate preoperative antibiotics were administered, the patient was taken to the operating room where he was placed in the supine position and general endotracheal anesthesia was administered. He was prepped and draped in the standard sterile fashion with a sterile occlusive dressing placed over the urostomy which was then prepped out of the field. Local anesthesia was infused to the skin and subcutaneous tissues overlying the upper rectus sheath. A transversely oriented oval incision was made overlying the upper rectus sheath and the skin and subcutaneous fat resected. The anterior rectus sheath was incised in a cruciate manner and the underlying rectus muscle split. The posterior rectus sheath was grasped and drawn up into the wound and incised under direct vision. The underlying peritoneum was then grasped, drawn up into the wound and palpated to ensure that no intra-abdominal contents were involved and sharply incised. The peritoneal cavity was entered and extremely distended but viable appearing colon was immediately encountered. The posterior rectus and peritoneal incision was extended in a cruciate manner and the tract dilated to allow this very distended colon to come up into the colostomy incision. The underlying colon was felt to likely represent the distal transverse colon although it was more vertically oriented than usual. The omentum was divided immediately adjacent to the bowel wall and the colon brought up into the wound and the mesentery incised adjacent to the bowel wall creating a window. A red rubber catheter was passed through this window and the red rubber catheter was tunneled immediately under the dermis exiting several centimeters from the incision and secured to the skin to provide support to the loop colostomy. As much bowel as possible was drawn up into the incision although this was done with difficulty due to the tensely distended nature of the bowel. Lembert sutures were used circumferentially to secure it to the posterior rectus sheath. A transversely oriented incision was then made in the colon and suction used to prevent contamination of the wound with gas and stool. A pool suction device was placed into both limbs of the colon and almost 2 L of liquid stool was evacuated from the colon with immediate improvement in the abdominal distention. Even after evacuation of a large amount of stool from the colon that was able to be accessed with the pool suction, liquid stool continued to be evacuated from both proximal and distal limbs throughout the procedure and continuous suction had to be utilized to prevent this stool from spilling out during maturation of the colostomy. The colon was secured circumferentially at 8 locations with everting Lembert sutures secured to the full-thickness of the colon wall and the dermis and intervening sutures were used to secure the full- thickness of the colon wall to the dermis circumferentially. The skin was prepped with Mastisol and stoma adhesive paste and a colostomy appliance secured over the colostomy. Urostomy appliance was placed over the urostomy site as well and the patient was extubated and taken to recovery in good condition. Estimated blood loss was minimal. There were no complications. There were no specimens.
[2020-03-12] MEDS: Lactated Ringer's 1,000 ML IV SCH ×2 (03:39→09:09)
[2020-03-12 07:55] LABS: #Eosinphils 0.1 thou/uL (0.0-0.7); #Lymphocytes 1.7 thou/uL (1.20-3.40); #Monocytes 1.3 thou/uL (0.11-0.59); #Neutrophils 7.2 thou/uL (1.40-6.50); %Basophils 0.1 % (0.0-1.0); %Eosinophils 1.1 % (0.0-10.0); %Lymphocytes 16.4 % (21.0-51.0); %Monocytes 12.5 % (0.0-10.0); Hemoglobin 11.2 g/dL (14.0-18.0); Mean Corpuscular Volume 87.8 fL (78.0-98.0); Mean Platelet Volume 6.6 fL (7.4-10.4); Platelet Count 257 thou/uL (130-400); RBC Distribution Width 12.7 % (11.5-14.5); Red Blood Cell (RBC) Count 3.85 mill/uL (4.70-6.10); White Blood Cell (WBC) Count 10.3 thou/uL (4.8-10.8)
[2020-03-12 08:13] LABS: Anion Gap 8 mmol/L (10-20); BUN (Urea Nitrogen) 15 mg/dL (8.4-25.7); Calc. Creatinine Clearance 72 mL/min (70-130); Carbon Dioxide 29 mmol/L (23-31); Chloride 104 mmol/L (98-107); Estimated GFR-MDRD Greater than 90; Glucose 105 mg/dL (83-110); Potassium 3.9 mmol/L (3.5-5.1); Sodium 137 mmol/L (136-145)
[2020-03-12] MEDS: Famotidine/PF 20 mg/2ml Vial SLOW IVP SCH ×2 (09:10→20:47)
[2020-03-12] MEDS: Enoxaparin Sodium 40 MG/0.4 ML SYRINGE SC SCH (09:10)
--- NOTE | 2020-03-12 11:04 | PDOC.HOSPP ---
- Subjective Encounter Date: 03/12/20 Encounter Time: 10:40 Subjective: is sitting in chair and eating no abd pain or nausea feels better - Objective Vital Signs & Weight: Vital Signs (12 hours) Temp Pulse Resp BP Pulse Ox 03/12/20 07:54 97.8 F 62 16 131/62 96 Weight Admit Weight 158 lb 8 oz Weight 158 lb 8 oz I&O: 03/11/20 03/12/20 03/13/20 06:59 06:59 06:59 Intake Total 1260 1340 Output Total 1875 1250 Balance -615 90 Result Diagrams: 03/12/20 07:45 03/12/20 07:45 Additional Labs: Accuchecks 03/12/20 03/12/20 03/11/20 08:19 06:29 19:19 POC Glucose 108 116 H 170 H 03/11/20 03/11/20 18:09 12:18 POC Glucose 140 H 183 H Hospitalist ROS - Medication Medications: Active Medications Generic Name Dose Route Start Last Admin Trade Name Malcolmq PRN Reason Stop Dose Admin Enoxaparin Sodium 40 mg 03/11/20 09:00 03/12/20 09:10 Lovenox SC 40 mg 0900 PARUL Administration Famotidine 20 mg 03/10/20 21:00 03/12/20 09:10 Pepcid SLOW IVP 20 mg Q12HR PARUL Administration Fentanyl 50 mcg 03/10/20 11:45 03/10/20 12:33 Duragesic TD 50 mcg Q3D PARUL Administration Lactated Ringer's 1,000 mls @ 100 mls/hr 03/10/20 11:45 03/12/20 09:09 Lactated Ringer's IV 1,000 mls .Q10H PARUL Administration Morphine Sulfate 4 mg 03/10/20 11:35 03/10/20 23:24 Morphine SLOW IVP 4 mg Q4H PRN Administration Breakthrough Pain Tramadol HCl 50 mg 03/10/20 23:22 03/11/20 05:44 Ultram PO 50 mg Q4H PRN Administration Moderate Pain (4-6) - Exam General Appearance: awake alert Eye: PERRL, anicteric sclera ENT: no oropharyngeal lesions, moist mucosa Neck: supple, no JVD Heart: RRR, no murmur Respiratory: no wheezes, no rales Gastrointestinal: soft, non-distended, normal bowel sounds Gastrointestinal - other findings: colostomy has stool in it Extremities: no cyanosis, no edema Neurological: cranial nerve grossly intact, no focal deficits Psychiatric: normal affect, A&O x 3 Hosp A/P (1) Colon obstruction Code(s): K56.609 - UNSP INTESTNL OBST, UNSP TO PARTIAL VERSUS COMPLETE OBST Status: Acute (2) Bladder cancer Status: Chronic Qualifiers: Bladder location: unspecified site Qualified Code(s): C67.9 - Malignant neoplasm of bladder, unspecified (3) Prostate cancer Code(s): C61 - MALIGNANT NEOPLASM OF PROSTATE Status: Chronic (4) HTN (hypertension) Code(s): I10 - ESSENTIAL (PRIMARY) HYPERTENSION Status: Chronic Qualifiers: Hypertension type: essential hypertension Qualified Code(s): I10 - Essential (primary) hypertension (5) DM type 2 (diabetes mellitus, type 2) Status: Chronic Qualifiers: Diabetes mellitus prison insulin use: without prison use (6) Dyslipidemia Code(s): E78.5 - HYPERLIPIDEMIA, UNSPECIFIED Status: Chronic - Plan s/p diverting colostomy 03/10, colostomy is working and has stool in it is tolerating oral solid diet now continue fentanyl tts, morphine prn to mobilize as tolerated hemostable overall prognosis is guarded likely dc plan in am needs outpt f/u with and
--- NOTE | 2020-03-12 20:57 | PDOC.GSPN ---
Surgery Progress Note: Subj - Subjective Narrative: Patient is doing well and receiving instruction from the wound care team regarding management of his colostomy. He is able to empty this himself and understands the principles of changing the appliance as well. He is tolerating his diet and from a surgical standpoint can be discharged home at any time. He should follow-up in my clinic in 2 weeks for removal of the red rubber catheter bridge. Surgery Progress Note: Obj - Vital signs Vital signs: Vital Signs - Most Recent Temp Pulse Resp BP Pulse Ox 97.8 F 62 16 131/62 96 03/12/20 07:54 03/12/20 07:54 03/12/20 07:54 03/12/20 07:54 03/12/20 08:00 Surgery Progress Note: Results - Labs Result Diagrams: 03/12/20 07:45 03/12/20 07:45 Lab results: Laboratory Results - last 24 hr 03/12/20 03/12/20 03/12/20 12:15 16:08 20:46 POC Glucose 152 H 139 H 138 H
[2020-03-13 04:27] LABS: Anion Gap 9 mmol/L (10-20); BUN (Urea Nitrogen) 13 mg/dL (8.4-25.7); Calc. Creatinine Clearance 72 mL/min (70-130); Calcium 8.2 mg/dL (7.8-10.44); Carbon Dioxide 29 mmol/L (23-31); Chloride 104 mmol/L (98-107); Estimated GFR-MDRD Greater than 90; Glucose 115 mg/dL (83-110); Sodium 138 mmol/L (136-145)
[2020-03-13] MEDS: Famotidine/PF 20 mg/2ml Vial SLOW IVP SCH (08:55)
[2020-03-13] MEDS: Enoxaparin Sodium 40 MG/0.4 ML SYRINGE SC SCH (08:55)
[2020-03-13] MEDS: fentaNYL 50 mcg/hour Patch TD SCH (11:45)
[2020-03-13 12:38] VITALS: BP 176/92; TEMP 97.8
--- NOTE | 2020-03-13 13:18 | PDOC.GSPN ---
Surgery Progress Note: Subj - Subjective Narrative: Patient is feeling good. Tolerating his diet not having any problems with his colostomy. No further leakage since wound care placed the appliance. Colostomy looks healthy. Assessment/plan. Doing well status post diverting colostomy. Stable for discharge home from surgical standpoint. Follow-up in my clinic in 2 weeks time. Home health or wound care clinic follow-up for continued assistance and training with colostomy. Surgery Progress Note: Obj - Vital signs Vital signs: Vital Signs - Most Recent Temp Pulse Resp BP Pulse Ox 97.8 F 93 20 176/92 H 98 03/13/20 11:45 03/13/20 11:45 03/13/20 11:45 03/13/20 11:45 03/13/20 11:45 Surgery Progress Note: Results - Labs Result Diagrams: 03/12/20 07:45 03/13/20 03:26 Lab results: Laboratory Results - last 24 hr 03/13/20 03:26 Sodium 138 Potassium 4.0 Chloride 104 Carbon Dioxide 29 Anion Gap 9 L BUN 13 Creatinine 0.71 Estimated GFR (MDRD) Greater than 90 Glucose 115 H Calcium 8.2
--- NOTE | 2020-03-13 14:32 | PDOC.MOPN ---
Interval History: denies pain, eating well. Ambulatory. - Vital Signs Vital Signs: Vital Signs (12 hours) Temp Pulse Resp BP Pulse Ox 03/13/20 11:45 97.8 F 93 20 176/92 H 98 03/13/20 08:00 98.4 F 76 18 165/76 H 95 Weight Admit Weight 158 lb 8 oz Weight 158 lb 8 oz - Physical Exam General: Alert, Oriented x3, No acute distress HEENT: Atraumatic, PERRLA, EOMI, Mucous membr. moist/pink Lungs: Clear to auscultation, Normal air movement Cardiovascular: Regular rate, Normal S1, Normal S2, No murmurs, Gallops, Rubs Abdomen: Other (colostomy) Neurological: Normal speech Psych/Mental Status: Mental status NL - Labs Result Diagrams: 03/12/20 07:45 03/13/20 03:26 Lab results: Laboratory Results - last 24 hr 03/13/20 03:26: Sodium 138, Potassium 4.0, Chloride 104, Carbon Dioxide 29, Anion Gap 9 L, BUN 13, Creatinine 0.71, Estimated GFR (MDRD) Greater than 90, Glucose 115 H, Calcium 8.2 03/12/20 20:46: POC Glucose 138 H 03/12/20 16:08: POC Glucose 139 H Status: lab reviewed by me A/P - Problem (1) Colon obstruction Current Visit: Yes Code(s): K56.609 - UNSP INTESTNL OBST, UNSP TO PARTIAL VERSUS COMPLETE OBST Status: Acute (2) Bladder cancer Current Visit: Yes Status: Chronic Qualifiers: Bladder location: unspecified site Qualified Code(s): C67.9 - Malignant neoplasm of bladder, unspecified - Plan Plan: home after colostomy teaching. follow-up next week, we will call him pain meds prn.
--- NOTE | 2020-03-13 15:25 | DIS ---
DATE OF ADMISSION: 03/10/2020 DATE OF DISCHARGE: 03/13/2020 DISCHARGE DISPOSITION: To home. PRIMARY DISCHARGE DIAGNOSES: Colonic obstruction, status post diverting colostomy; history of bladder cancer with recurrence; history of prostate cancer; hypertension; diabetes mellitus type 2; dyslipidemia. PROCEDURES DONE DURING HOSPITALIZATION: The patient has had abdominal and pelvic CAT scan done on 03/10/2020, which showed soft tissue mass in the left lower quadrant of the abdomen and pelvis affixing the lower sigmoid colon to the anterolateral pelvic wall inducing worsening moderate high-grade low colonic obstruction. 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 The patient has had diverting loop colostomy done by Dr. Carrasquillo on 03/10/2020. H and H 11 and 33, platelet count 257, MCV is 87, white count of 10. PT, INR, and PTT within normal limits. BUN 13, creatinine 0.7, albumin is 3.3. COVID-19 PCR was not detected on 03/10/2020. DISCHARGE MEDICATIONS: 1. Ultram 50 mg p.o. q.6 hourly p.r.n. 2. Vitamin B12 of 1000 mcg p.o. daily. 3. [place] p.r.n. for pain. 4. Neurontin 100 mg p.o. 3 times daily. 5. Ferrous sulfate 325 mg p.o. daily. 6. Trulicity 0.75 mg subcu once weekly. 7. Lipitor 40 mg p.o. daily. 8. Aspirin 81 mg p.o. daily. ALLERGIES: TO SULFA. INPATIENT CONSULTS: 1. Dr. Carrasquillo for General Surgery. 2. Dr. Samuel Smalls for Gastroenterology. 3. Dr. Shea for Radiation Oncology. 4. Dr. Sarmiento for Oncology. DISCHARGE PLAN: The patient to follow up with Dr. Carrasquillo in 2 weeks. He needs to follow up with Dr. Shea, Dr. Sarmiento, and Dr. Mesfin Cheema, his primary care physician, all the 3 above in 1 week. BRIEF COURSE DURING HOSPITALIZATION: The patient initially got admitted on the with complaints of severe abdominal pain. Initial CAT scan done showed large bowel obstruction with likely recurrence of bladder cancer. He has had consultation with Dr. Samuel Smalls for Gastroenterology and Dr. Carrasquillo for General Surgery. In view of severe large bowel obstruction, the patient was taken on an emergent basis for diverting loop colostomy. Post this procedure, the patient is tolerating oral diet, and his colostomy is working well. His abdominal pain has completely resolved. The patient has recurrence of his bladder cancer and will follow up with Dr. Shea and Dr. Sarmiento in the outpatient setting for further workup and likely radiation, immunotherapy, or a combination including chemotherapy. He is ambulating and eating well prior to discharge. Please note, I have seen and examined the patient on the day of discharge. Job ID: [id number]
--- NOTE | 2020-03-16 07:01 | PQF ---
Dear : Gucci Proctor Date / Time: 03/16/2020 Please exercise your independent, professional judgment in responding to the clarification form. Clinical indicators are provided on the bottom of this form for your review Can you please further clarify the diagnosis of the patient? Please check appropriate box(es): [ ] Pelvic Metastasis including sigmoid colon [x ] Pelvic Metastasis including Pelvic bone [ ] Pelvic Metastasis including sigmoid colon and pelvic bone [ ] Pelvic Metastasis only with no other involvement [ ] Other diagnosis please specify [ ] Unable to determine Physician Signature: Date/Time: For continuity of documentation, please document condition throughout progress notes and discharge summary. Thank You. To be completed by CDI/Coding staff for physician review: Present Clinical Indicators - Signs / Symptoms / Labs Results and Location in Medical Record [ x ] CT shows sings of possible small bowel obstruction H and P pg.1 [ x ] Soft tissue mass in the left lower quadrant of the abdomen and pelvis affixing the lower sigmoid colon Abdomen/pelvis CT 03/10 pg.1 [ x ] CT scan showing a new suprapubic mass which was pressing to the sigmoid colon Consult pg.1 Dr. Sarmiento [ x ] Stage 3 bladder cancer, likely relapsed in the suprapubic area Consult pg.1Dansley Sarmiento [ x ] Colonic obstruction 2/2 suprapubic mass Consult pg.3 Dr. Sarmiento [ x ] Sigmoid obstruction due to recurrent bladder cancer OP report pg.1 [ x ] There is a prominent soft tissue mass either arising or invading the right pubic body and projecting into the right pelvis Ds pg.1 Present Risk Factors Results and Location in Medical Record [ x ] Hx of bladder cancer H and P pg.1 [ x ] Hx of prostate cancer H and P pg.1 [ x ] 89 years old H and P pg.1 [ x ] DM H and P pg.1 Present Treatments Results and Location in Medical Record [ x ] Abdomen/pelvis CT 03/10 [ x ] Abdomen X ray 03/10 [ x ] Oncology Consult Dr. Sarmiento 03/11 [ x ] Diverting loop colostomy OP report [ x ] Surgery Consult Dr. Carrasquillo [ x ] IV fluids MAR This is a permanent part of the Medical Record [facility]
== END 2020-03-13 16:49 | disposition home or self-care (01) | DRG 830 ==
LOC: ONC 09:34
PROVIDERS: ADMIT Internal Medicine; ATTEND Internal Medicine
PROC: 0D1N0Z4 Bypass Sigmoid Colon to Cutaneous, Open Approach (ICD-10-PCS; principal; 2020-03-10)
DX: C79.89 Secondary malignant neoplasm of other specified sites (principal); C79.51 Secondary malignant neoplasm of bone; I10 Essential (primary) hypertension; E11.9 Type 2 diabetes mellitus without complications; E78.5 Hyperlipidemia, unspecified; Z20.828 Contact with and (suspected) exposure to other viral communicable diseases; E86.0 Dehydration; K59.00 Constipation, unspecified; M19.90 Unspecified osteoarthritis, unspecified site; I25.10 Atherosclerotic heart disease of native coronary artery without angina pectoris; C61 Malignant neoplasm of prostate; E78.00 Pure hypercholesterolemia, unspecified; K62.7 Radiation proctitis; Z90.49 Acquired absence of other specified parts of digestive tract; Z88.2 Allergy status to sulfonamides; Z95.1 Presence of aortocoronary bypass graft; Z79.82 Long term (current) use of aspirin; Z79.899 Other long term (current) drug therapy; Y84.2 Radiological procedure and radiotherapy as the cause of abnormal reaction of the patient, or of later complication, without mention of misadventure at the time of the procedure; C67.9 Malignant neoplasm of bladder, unspecified
CPT/HCPCS: 36415; 36416; 74018; 74177; 80048; 80053; 85025; 85610; 85730; 87635; 96372; 99283; J0694; J1100; J1650; J1885; J2270; J2405; J2704; J3010; S0020; S0028; U0003

== ENCOUNTER 2020-03-23 11:18 | Outpatient (CLI) | payer MEDICARE ==
--- NOTE | 2020-03-23 14:08 | PET ---
EXAM: PET/CT HISTORY: Bladder cancer TECHNIQUE: PET scanning with CT attenuation correction was performed from the base of the brain to the proximal thighs following the intravenous administration of 12.4 millicuries [id number]. COMPARISON: CT the abdomen and pelvis with contrast dated March 10, 2020 FINDINGS: Biodistribution:The biodistribution for the exam appears acceptable. Head and neck: There is appropriate background activity within the brain. No hypermetabolic lymphaden opathy or masses identified. Thorax: No hypermetabolic pulmonary lesion, pleural effusion or lymphadenopathy is present. Abdomen and pelvis: There is expected background activity within the GI and systems.The aggressive soft tissue mass seen within the right anterolateral aspect of the pelvis eroding into the right pubic body and right superior pubic ramus demonstrates a peak SUV activity of 43.4 and a mean activit y of 22.96 months mass measures 6.1 x 5.1 cm, slightly larger than on the most recent evaluation dated March 10, 2020. The left anterior side wall pelvic mass measures 4.4 x 3.9 cm, slightly larger than on the prior examination, with a peak SUV activity 7.2 and a mean activity of 5.6. The lesion is contacting the distal sigmoid colon. There is been interval postprocedural change of a diverting l oop colostomy within the left upper quadrant abdomen. Postsurgical changes of cystectomy and neobladder formation with a urostomy seen in the right mid abdomen is stable. Partial small bowel exc ision site in the right lower quadrant is stable. There is no evidence of ongoing obstruction. No hypermetabolic lymphadenopathy is evident. Osseous structures and skin: The soft tissue mass of the anterolateral right pelvis does erode and in vade into the right pubic body and right superior pubic ramus. No additional osseous or skin lesion is identified. Excretory activity seen within the patient's right mid abdomen urostomy bag. IMPRESSION: Abnormal PET/CT 1. Findings suspicious for recurrent malignancy involving the anterior pelvis with hypermetabolic mas s invasion into the right pubic body and right superior pubic ramus. There is also left hemipelvis hypermetabolic soft tissue mass adhering to the distal sigmoid colon, previously seen inducing a low colonic obstruction. There is been interval diverting loop colostomy placed in the left upper quadrant of the abdomen. 2. No evidence to suggest distant regional metastatic spread in the abdomen and pelvis nor distant me tastatic disease to the thorax or head neck region.
== END 2020-03-23 11:19 | disposition home or self-care (01) ==
LOC: PET 11:18
PROVIDERS: ATTEND Internal Medicine Hematology & Oncology
DX: C67.4 Malignant neoplasm of posterior wall of bladder (principal)
CPT/HCPCS: 78815; A9552

== ENCOUNTER → 2020-03-27 | Day surgery (SDC) | payer MEDICARE ==
[2020-03-27 10:09] VITALS: BMI 24.1
--- NOTE | 2020-03-27 11:49 | CT ---
Pelvic mass biopsy CT-guided Conscious sedation: At least 30 minutes spent with the patient for conscious sedation HISTORY: Right pelvic mass. Colon cancer. FINDINGS: After explaining the procedure and answering all questions, limited CT imaging of the pelvi s was performed. Sterile technique, buffered local anesthesia, CT guidance, and an anterior lower abdomen approach wer e used to carefully advance a 17-gauge trocar needle into the destructive mass involving the right superior pubic ramus near the pubic symphysis. Position was confirmed with CT. A total of 4 18-gauge core biopsy specimens were obtained and eventually submitted to pathology for e valuation. Needle was removed. No evidence of complication. Patient tolerated the procedure well and was returned to the holding area in good condition for further monitoring. IMPRESSION : Technically successful CT-guided biopsy pelvic mass. Pathology is pending.
== END ==
LOC: CT 09:08
PROVIDERS: ATTEND Internal Medicine Hematology & Oncology
PROC: 0WBF3ZX Excision of Abdominal Wall, Percutaneous Approach, Diagnostic (ICD-10-PCS; principal; 2020-03-27)
DX: C67.9 Malignant neoplasm of bladder, unspecified (principal); E11.9 Type 2 diabetes mellitus without complications; I25.10 Atherosclerotic heart disease of native coronary artery without angina pectoris; M19.90 Unspecified osteoarthritis, unspecified site; Z79.82 Long term (current) use of aspirin; Z79.899 Other long term (current) drug therapy; Z85.46 Personal history of malignant neoplasm of prostate; Z88.2 Allergy status to sulfonamides
CPT/HCPCS: 49180; 77012; 88305; 88341; 88342

== ENCOUNTER 2020-06-27 07:33 | Outpatient (CLI) | payer MEDICARE | END 2020-06-27 07:34 | disposition home or self-care (01) | LOC: PET 07:33 | PROVIDERS: ATTEND Internal Medicine Hematology & Oncology | DX: C67.4 Malignant neoplasm of posterior wall of bladder (principal); C79.51 Secondary malignant neoplasm of bone | CPT/HCPCS: 78815; A9552 ==

== ENCOUNTER 2020-09-22 08:18 | Outpatient (CLI) | payer MEDICARE | END 2020-09-22 08:19 | disposition home or self-care (01) | LOC: PET 08:18 | PROVIDERS: ATTEND Internal Medicine Hematology & Oncology | DX: C67.4 Malignant neoplasm of posterior wall of bladder (principal); C79.51 Secondary malignant neoplasm of bone | CPT/HCPCS: 78815; A9552 ==

== ENCOUNTER 2020-10-12 13:09 | Outpatient (CLI) | payer MEDICARE, OTHER | END 2020-10-12 13:10 | disposition home or self-care (01) | LOC: MRI 13:09 | PROVIDERS: ATTEND Family Medicine | DX: G89.4 Chronic pain syndrome (principal); M54.16 Radiculopathy, lumbar region; C79.51 Secondary malignant neoplasm of bone; Z98.890 Other specified postprocedural states; M48.061 Spinal stenosis, lumbar region without neurogenic claudication | CPT/HCPCS: 72148 ==

== ENCOUNTER 2020-12-08 15:34 | Emergency (ER) | payer MEDICARE ==
[2020-12-08 16:42] LABS: Mean Corpuscular HGB CONC 32.4 g/dL (32.0-36.0); Mean Corpuscular Hemoglobin 27.4 pg (27.0-31.0); Mean Corpuscular Volume 84.6 fL (78.0-98.0); Mean Platelet Volume 6.3 fL (7.4-10.4); Platelet Count 460 thou/uL (130-400); RBC Distribution Width 14.1 % (11.5-14.5); Red Blood Cell (RBC) Count 4.39 mill/uL (4.70-6.10); White Blood Cell (WBC) Count 9.6 thou/uL (4.8-10.8)
[2020-12-08 16:57] LABS: Eosinophils 5 % (0-10); Lymphocytes 21 % (21-51); MDiff Complete? YES; Monocytes 4 % (0-10); Neutrophil 70 % (42-75); Platelet Morphology Comment Appears Increased; Polychromasia SLIGHT = 2-3 cells (100X) (0-2/hpf)
[2020-12-08 17:04] LABS: ALT (SGPT) 28 U/L (8-55); AST (SGOT) 30 U/L (5-34); Albumin 3.6 g/dL (3.4-4.8); Alkaline Phosphatase 132 U/L (40-110); Anion Gap 15 mmol/L (10-20); BUN (Urea Nitrogen) 27 mg/dL (8.4-25.7); Bilirubin, Total 0.5 mg/dL (0.2-1.2); Calc. Creatinine Clearance 0 mL/min (70-130); Calcium 9.8 mg/dL (7.8-10.44); Carbon Dioxide 31 mmol/L (23-31); Chloride 96 mmol/L (98-107); Globulin 3.6 g/dL (2.4-3.5); Glucose 139 mg/dL (83-110); Potassium 3.1 mmol/L (3.5-5.1); Protein, Total 7.2 g/dL (5.8-8.1); Sodium 139 mmol/L (136-145)
== END 2020-12-08 19:57 | disposition home or self-care (01) ==
LOC: ERS 15:34
DX: J81.1 Chronic pulmonary edema (principal); E87.6 Hypokalemia; E11.9 Type 2 diabetes mellitus without complications; I10 Essential (primary) hypertension; I25.10 Atherosclerotic heart disease of native coronary artery without angina pectoris; Z85.46 Personal history of malignant neoplasm of prostate; Z85.51 Personal history of malignant neoplasm of bladder; Z79.899 Other long term (current) drug therapy; Z79.82 Long term (current) use of aspirin; Z79.4 Long term (current) use of insulin
CPT/HCPCS: 36415; 71045; 71275; 80053; 83880; 84484; 85025; 93005

== ENCOUNTER 2020-12-12 11:51 | Outpatient (CLI) | payer MEDICARE | END 2020-12-12 11:52 | disposition home or self-care (01) | LOC: PET 11:51 | PROVIDERS: ATTEND Internal Medicine Hematology & Oncology | DX: C67.9 Malignant neoplasm of bladder, unspecified (principal); C79.51 Secondary malignant neoplasm of bone; M79.89 Other specified soft tissue disorders | CPT/HCPCS: 78815; A9552 ==